=== PATIENT | male | born 1980 | race Caucasian/White ===

== ENCOUNTER 2018-08-19 22:49 | Emergency (ER) | payer SELFPAY ==
[~2018-08-19] VITALS: Ht 175.3 cm; Wt 64.8 kg
[~2018-08-19 22:49] MED LIST: MESA400C PO; MESA500C PO; TRIM100V2 IM
[2018-08-19] MEDS ORDERED: IV NORMAL SALINE 1,000ML 1,000 ML IV ONE (23:15)
[2018-08-19] MEDS ORDERED: FAMOTIDINE 20 MG/2 ML VIAL IVP ONE (23:30)
[2018-08-19] MEDS ORDERED: ONDANSETRON PF 4 MG/2 ML VIAL. IV ONE (23:30)
[2018-08-19] MEDS ORDERED: DEXAMETHASONE SOD PHOS 10 MG/ML VIAL IV ONE (23:30)
[2018-08-19] MEDS ORDERED: IOHEXOL 300 MG/ML 75 ML VIAL. IV ONE (23:45)
[2018-08-19] MEDS ORDERED: CONTRAST GIVEN MC PRN (23:45)
[2018-08-19] MEDS ORDERED: IOHEXOL 240 MG/ML 50ML VIAL. PO ONE (23:45)
--- NOTE | 2018-08-19 23:51 | PHYS DOC ---
Past History Past Medical History: Other Additional Past Medical Histor: Crohn's, Hepatitis C Past Surgical History: Cholecystectomy, Other Additional Past Surgical Histo: Partial colectomy Smoking: Quit Greater Than 1 Year Alcohol Use: None Drug Use: None Adult General Chief Complaint Chief Complaint: ABDOMINAL PAIN HPI HPI 37-year-old [facility] history of abdominal pain which patient reports is consistent with known Crohn's flare. Patient reports he recently got out of prison. Reports is currently not taking preventative medications. Reports associated nausea and vomiting. Reports did have a bloody bowel movement 2 days ago. Denies diarrhea. Denies fever or chills. Review of Systems Review of Systems Constitutional: Denies fever or chills [] Eyes: Denies change in visual acuity, redness, or eye pain [] HENT: Denies nasal congestion or sore throat [] Respiratory: Denies cough or shortness of breath [] Cardiovascular: Denies chest pain or palpitations GI: Reports abdominal pain, nausea, vomiting, and bloody stools; denies diarrhea [] : Denies dysuria or hematuria [] Musculoskeletal: Denies back pain or joint pain [] Integument: Denies rash or skin lesions [] Neurologic: Denies headache, focal weakness or sensory changes [] Complete systems were reviewed and found to be within normal limits, except as documented in this note. Current Medications Current Medications Current Medications Medications (Trade) Dose Ordered Sig/[facility] Start Time Stop Time Status Last Admin Dose Admin Dexamethasone Sodium Phosphate (Decadron) 10 mg 1X ONCE 08/19/18 23:30 08/19/18 23:31 DC 08/19/18 23:33 10 MG Famotidine (Pepcid Vial) 20 mg 1X ONCE 08/19/18 23:30 08/19/18 23:31 DC 08/19/18 23:32 20 MG Fentanyl Citrate (Fentanyl 2ml Vial) 50 mcg 1X ONCE 08/19/18 23:30 08/19/18 23:31 DC 08/19/18 23:31 50 MCG Info (Do NOT chart on this entry -- for MONITORING) 1 each PRN DAILY PRN 08/19/18 23:45 08/21/18 23:44 Iohexol (Omnipaque 240 Mg/ml) 50 ml 1X ONCE 08/19/18 23:45 08/19/18 23:46 Iohexol (Omnipaque 300 Mg/ml) 75 ml 1X ONCE 08/19/18 23:45 08/19/18 23:46 Ondansetron HCl (Zofran) 4 mg 1X ONCE 08/19/18 23:30 08/19/18 23:31 DC 08/19/18 23:32 4 MG Sodium Chloride 1,000 ml @ 1,000 mls/hr 1X ONCE 08/19/18 23:15 08/20/18 00:14 08/19/18 23:31 1,000 MLS/HR Allergies Allergies Allergies Coded Allergies Type Severity Reaction Last Updated Verified aspirin Allergy Intermediate rash 08/19/18 No ibuprofen Allergy Intermediate rash 08/19/18 No ketorolac Allergy Intermediate rash 08/19/18 No morphine Allergy Intermediate rash 08/19/18 No Physical Exam Physical Exam Constitutional: Well developed, well nourished, no acute distress, non-toxic appearance. [] HENT: Normocephalic, atraumatic, oropharynx moist Eyes: Conjunctiva normal, no discharge. [] Neck: Normal range of motion, no tenderness, supple Cardiovascular: Heart rate regular rhythm, no murmur [] Lungs & Thorax: Bilateral breath sounds clear to auscultation [] Abdomen: Soft, diffuse tenderness but worse to RLQ Skin: Warm, dry, no erythema, no rash. [] Back: No tenderness, no CVA tenderness. [] Extremities: No tenderness, ROM intact, no edema. [] Neurologic: Alert and oriented X 3, normal motor function, normal sensory function, no focal deficits noted. [] Psychologic: Affect normal, judgement normal, mood normal. [] Current Patient Data Vital Signs Vital Signs Date Time Temp Pulse Resp B/P (MAP) Pulse Ox O2 Delivery O2 Flow Rate FiO2 08/19/18 22:55 98.5 60 16 99 Room Air EKG EKG [] Radiology/Procedures Radiology/Procedures PROCEDURE: CT ABD PEL W/ORAL CONTRST ONLY Abdominal and Pelvis CT, Without Contrast: History: Abdominal pain. History of Crohn's disease. Comparison: None. Procedure: Axial images are obtained of the abdomen and pelvis, with oral contrast only. CT Abdomen without Contrast: Findings: Evaluation of solid organs is limited without contrast. Liver: Normal. Spleen: Normal. Pancreas: Normal. Adrenal Glands: Normal. Kidneys: Normal. There is no free air or free fluid. There is no lymphadenopathy. Impression: Please see CT Pelvis without Contrast. End Impression. CT Pelvis without Contrast: Findings: The urinary bladder appears normal. There is no free fluid. There is no lymphadenopathy. There appears to been prior appendectomy. There is moderate wall thickening of the distal ileum and terminal ileum. Impression: Moderate wall thickening of the distal ileum and terminal ileum is consistent with Crohn's disease. PQRS Compliance Statement: One or more of the following individualized dose reduction techniques were utilized for this examination: 1. Automated exposure control 2. Adjustment of the mA and/or kV according to patient size 3. Use of iterative reconstruction technique Electronically signed by: Tylor Blankenship III, MD (08/20/2018 1:27 AM) [facility] Course & Med Decision Making Course & Med Decision Making Pertinent Labs and Imaging studies reviewed. (See chart for details) Patient with past medical history of Crohn's disease presents with diffuse abdominal pain which appears worse to right lower quadrant. Reports associated nausea and vomiting. Patient reports symptoms similar to prior Crohn's flares. Symptomatic treatment provided. IV fluid hydration given. Labs obtained and posted to chart. CT abdomen/pelvis with findings consistent for Crohn's flare. Symptomatic treatment provided. Patient stable for discharge with outpatient follow-up with PCP/GI. GI referral provided. Rx for pain meds, anti-inflammatory, and anti-emetic provided. [employer] inquiry performed without any recent controlled substance prescription noted. Discussed findings and plan with patient, who acknowledges understanding and agreement. Dragon Disclaimer Dragon Disclaimer This electronic medical record was generated, in whole or in part, using a voice recognition dictation system. Departure Departure: Impression: Primary Impression: Crohn's colitis Disposition: HOME, SELF-CARE Condition: STABLE Referrals: PCPFLOYD (PCP) TAM HOPE MD Patient Instructions: Crohn's Disease Scripts Mesalamine (PENTASA) 500 Mg Capsule.er 1000 MG PO QID for Crohn's colitis, #30 CAP.SR Prov: JULIENNE SEYMOUR DO 08/20/18 Ondansetron (ZOFRAN ODT) 4 Mg Tab.rapdis 1 TAB SL Q8HRS PRN for NAUSEA, #15 TAB Prov: JULIENNE SEYMOUR DO 08/20/18 Oxycodone Hcl (OXYCODONE HCL) 5 Mg Tablet 1 TAB PO QID PRN for PAIN, #10 TAB Prov: JULIENNE SEYMOUR DO 08/20/18 Problem Qualifiers Primary Impression: Crohn's colitis Digestive disease complication type: unspecified complication Qualified Codes : K50.119 - Crohn's disease of large intestine with unspecified complications JULIENNE SEYMOUR DO Aug 19, 2018 23:50
[2018-08-20 00:18] LABS: BASO # 0.1 x10^3/uL (0.0-0.2); BASO % 1 % (0-3); EOS # 0.1 x10^3/uL (0.0-0.7); EOS % 1 % (0-3); HEMATOCRIT 45.8 % (39.0-53.0); HEMOGLOBIN 15.4 g/dL (13.0-17.5); LYMPH # 1.5 x10^3/uL (1.0-4.8); LYMPH % 19 % (24-48); MEAN CORPUSCULAR HEMOGLOBIN 29 pg (25-35); MEAN CORPUSCULAR HGB CONC 34 g/dL (31-37); MEAN CORPUSCULAR VOLUME 86 fL (79-100); MONO # 0.6 x10^3/uL (0.0-1.1); MONO % 8 % (0-9); NEUT # 5.4 x10^3uL (1.8-7.7); NEUT % 70 % (31-73); PLATELET COUNT 269 x10^3/uL (140-400); RED BLOOD COUNT 5.34 x10^6/uL (4.30-5.70); RED CELL DISTRIBUTION WIDTH 13.7 % (11.5-14.5); WHITE BLOOD COUNT 7.8 x10^3/uL (4.0-11.0)
[2018-08-20 00:27] LABS: ALBUMIN 3.9 g/dL (3.4-5.0); ALBUMIN/GLOBULIN RATIO 0.9 (1.0-1.7); CALCIUM 8.7 mg/dL (8.5-10.1); CREATININE 1.3 mg/dL (0.7-1.3); GFR 62.1; MAGNESIUM 2.1 mg/dL (1.8-2.4); POTASSIUM 3.8 mmol/L (3.5-5.1); TOTAL BILIRUBIN 0.5 mg/dL (0.2-1.0); TOTAL PROTEIN 8.1 g/dL (6.4-8.2)
[2018-08-20 01:00] VITALS: BP 126/61
--- NOTE | 2018-08-20 01:30 | RAD ---
Abdominal and Pelvis CT, Without Contrast: History: Abdominal pain. History of Crohn's disease. Comparison: None. Procedure: Axial images are obtained of the abdomen and pelvis, with oral contrast only. CT Abdomen without Contrast: Findings: Evaluation of solid organs is limited without contrast. Liver: Normal. Spleen: Normal. Pancreas: Normal. Adrenal Glands: Normal. Kidneys: Normal. There is no free air or free fluid. There is no lymphadenopathy. Impression: Please see CT Pelvis without Contrast. End Impression. CT Pelvis without Contrast: Findings: The urinary bladder appears normal. There is no free fluid. There is no lymphadenopathy. There appears to been prior appendectomy. There is moderate wall thickening of the distal ileum and terminal ileum. Impression: Moderate wall thickening of the distal ileum and terminal ileum is consistent with Crohn's disease. PQRS Compliance Statement: One or more of the following individualized dose reduction techniques were utilized for this examination: 1. Automated exposure control 2. Adjustment of the mA and/or kV according to patient size 3. Use of iterative reconstruction technique Electronically signed by: Tylor Blankenship III, MD (08/20/2018 1:27 AM) [facility]
[2018-08-20] MEDS ORDERED: OXYC5TAB95 PO (01:54)
[2018-08-20] MEDS ORDERED: ONDA4TAB10 SL (01:54)
[2018-08-20] MEDS ORDERED: MESA500C PO ×2 (01:54→01:56)
== END 2018-08-20 02:10 | disposition home or self-care (01) ==
LOC: ER 22:49
DX: K50.119 Crohn's disease of large intestine with unspecified complications (principal); Z90.49 Acquired absence of other specified parts of digestive tract; Z87.891 Personal history of nicotine dependence; Z88.6 Allergy status to analgesic agent; Z88.5 Allergy status to narcotic agent; Z88.8 Allergy status to other drugs, medicaments and biological substances
CPT/HCPCS: 36415; 74176; 80053; 83690; 83735; 85025; 96361; 96374; 96375; 96376; 99285; J1100; J2405; J3010; Q9966; S0028; J7030

== ENCOUNTER 2018-08-23 16:21 | Emergency (ER) | payer SELFPAY ==
[~2018-08-23] VITALS: Ht 175.3 cm; Wt 64.8 kg
[~2018-08-23 16:21] MED LIST changes: +ONDA4TAB10 SL; +OXYC5TAB95 PO
[2018-08-23 16:36] VITALS: BP 130/64
[2018-08-23] MEDS ORDERED: IV NORMAL SALINE 1,000ML 1,000 ML IV SCH (17:13)
--- NOTE | 2018-08-23 17:21 | PHYS DOC ---
Past History Past Medical History: Other Additional Past Medical Histor: Crohn's, Hepatitis C Past Surgical History: No Surgical History Additional Past Surgical Histo: Partial colectomy Smoking: Quit Greater Than 1 Year Alcohol Use: None Drug Use: None Adult General Chief Complaint Chief Complaint: BLOODY STOOL HPI HPI Patient is a 37 year old male who presents with complaining of abdominal pain and bloody stools. Patient states he had a long time history of Crohn's disease and for the last 1 week has had right-sided abdominal pain with history of 4 episodes of vomiting and 45 episodes of nonbloody diarrhea every day. Patient states he was seen in this emergency room 5 days ago and was not able to buy his medication because of financial problem and lack of insurance and today had 1 episodes of bright red blood in his stool prior to arrival to ER. Patient rated his pain 8/10 and states it is a sharp right-sided abdominal pain with radiation to his back. Patient denies urinary symptom, fever, chest pain and shortness of breath. Patient was incarcerated for 4 years and currently is a resident [facility]. Review of Systems Review of Systems Constitutional: Denies fever or chills [] Eyes: Denies change in visual acuity, redness, or eye pain [] HENT: Denies nasal congestion or sore throat [] Respiratory: Denies cough or shortness of breath [] Cardiovascular: No additional information not addressed in HPI [] GI: Reports abdominal pain, nausea, vomiting, bloody stools and diarrhea [] : Denies dysuria or hematuria [] Musculoskeletal: Denies back pain or joint pain [] Integument: Denies rash or skin lesions [] Neurologic: Denies headache, focal weakness or sensory changes [] Endocrine: Denies polyuria or polydipsia [] All other systems were reviewed and found to be within normal limits, except as documented in this note. Current Medications Current Medications Current Medications Medications (Trade) Dose Ordered Sig/Saw Start Time Stop Time Status Last Admin Dose Admin Famotidine (Pepcid Vial) 20 mg 1X ONCE 08/23/18 17:15 08/23/18 17:16 UNV Ondansetron HCl (Zofran) 4 mg 1X ONCE 08/23/18 17:15 08/23/18 17:16 UNV Sodium Chloride 1,000 ml @ 1,000 mls/hr Q1H 08/23/18 17:13 11/5/18 18:12 UNV Allergies Allergies Allergies Coded Allergies Type Severity Reaction Last Updated Verified aspirin Allergy Intermediate rash 08/19/18 No ibuprofen Allergy Intermediate rash 08/19/18 No ketorolac Allergy Intermediate rash 08/19/18 No morphine Allergy Intermediate rash 08/19/18 No Physical Exam Physical Exam Constitutional: Well developed, well nourished, no acute distress, non-toxic appearance. [] HENT: Normocephalic, atraumatic, oropharynx moist, no oral exudates, nose normal. [] Eyes: PERRLA, EOMI, conjunctiva normal, no discharge. [] Neck: Normal range of motion, no tenderness, supple, no stridor. [] Cardiovascular:Heart rate regular rhythm, no murmur [] Lungs & Thorax: Bilateral breath sounds clear to auscultation [] Abdomen: Bowel sounds normal, soft, no tenderness, voluntary guarding of the right side of abdomen ,no masses, no pulsatile masses. Rectal exam with present of local city driver showed normal external exam without gross blood stool. Skin: Warm, dry, no erythema, no rash. [] Back: No tenderness, no CVA tenderness. [] Extremities: No tenderness, no cyanosis, no clubbing, ROM intact, no edema. [] Neurologic: Alert and oriented X 3, normal motor function, normal sensory function, no focal deficits noted. [] Psychologic: Affect anxious, judgement normal, mood normal. [] Current Patient Data Vital Signs Vital Signs Date Time Temp Pulse Resp B/P (MAP) Pulse Ox O2 Delivery O2 Flow Rate FiO2 08/23/18 16:36 98.3 71 20 98 Room Air EKG EKG [] Radiology/Procedures Radiology/Procedures [] Impressions: Diagnoses Crohn's disease exacerbation Noncompliance with medication Course & Med Decision Making Course & Med Decision Making Pertinent Labs are pending. @1800: In addition of patient in ER showed 37-year-old male patient resident of the house presented for the second time to ER for abdominal pain and complaining of rectal bleeding. Patient had decreased breath and without gross stool or blood in his rectum. Labs is pending. Patient care transferred to Dr. [place] at 1800. Nurses and labs were not able to get blood from the patient I suggested a central line or IJ he declined stated just here for pain medicine and antibiotic requested sign AGAINST MEDICAL ADVICE and left home I advised the patient come back to the hospital if he changes his mind I also advised him to follow-up with primary care provider and gastroenterology as soon as possible Karol Disclaimer Karol Disclaimer This electronic medical record was generated, in whole or in part, using a voice recognition dictation system. Departure Departure: Disposition: AGAINST MEDICAL ADVICE Condition: GOOD Referrals: PCP,NO (PCP) Patient was advised to follow-up with gastroenterology Scripts Oxycodone Hcl (OXYCODONE HCL) 5 Mg Capsule 1 CAP PO QID for pain, #12 CAP Prov: BETTY PINEDO MD 08/23/18 Prednisone (PREDNISONE) 20 Mg Tablet 1 TAB PO BID for chrons for 10 Days, #20 TAB Prov: BETTY PINEDO MD 08/23/18 Metronidazole (FLAGYL) 500 Mg Tablet 1 TAB PO TID for chrobns, #30 TAB Prov: BETTY PINEDO MD 08/23/18 Ciprofloxacin Hcl (CIPRO) 500 Mg Tablet 1 TAB PO BID for chrons, #20 TAB Prov: BETTY PINEDO MD 08/23/18 BOY HINES MD Aug 23, 2018 17:21 BETTY PINEDO MD Aug 23, 2018 19:04
[2018-08-23] MEDS ORDERED: ONDANSETRON PF 4 MG/2 ML VIAL. IV ONE (17:45)
[2018-08-23] MEDS ORDERED: FAMOTIDINE 20 MG/2 ML VIAL IVP ONE (17:45)
--- NOTE | 2018-08-23 18:36 | RAD ---
EXAM: Chest, single view. HISTORY: Cough and fever. COMPARISON: None. FINDINGS: A frontal view of the chest is obtained. There is no infiltrate, pleural effusion or pneumothorax. The heart is normal in size. IMPRESSION: No acute pulmonary finding. Electronically signed by: Felisha Bean MD (08/23/2018 6:32 PM) [facility]
[2018-08-23] MEDS ORDERED: CIPR500T94 PO (19:01)
[2018-08-23] MEDS ORDERED: METR500T PO (19:01)
[2018-08-23] MEDS ORDERED: PRED20TA PO (19:01)
[2018-08-23] MEDS ORDERED: OXYC5CAP PO (19:02)
[2018-08-23] MEDS ORDERED: PROC10TA57 PO (19:17)
[2018-08-23] MEDS ORDERED: CIPROFLOXACIN HCL 500 MG TABLET PO ONE (19:30)
[2018-08-23] MEDS ORDERED: methylPREDNISolone SOD SUCC PF 125 MG/2 ML VIAL. IM ONE (19:30)
[2018-08-23] MEDS ORDERED: metroNIDAZOLE 500 MG TABLET PO ONE (19:30)
[2018-08-23] MEDS ORDERED: ONDANSETRON ODT 4 MG TAB.RAPDIS ONE (19:31)
[2018-08-23] MEDS ORDERED: oxyCODONE IR 5 MG TABLET PO STA (19:47)
== END 2018-08-23 22:40 | disposition left against medical advice (07) ==
LOC: ER 16:21
DX: K50.90 Crohn's disease, unspecified, without complications (principal); Z91.14 Patient's other noncompliance with medication regimen; Z87.891 Personal history of nicotine dependence; Z88.6 Allergy status to analgesic agent; Z88.5 Allergy status to narcotic agent; Z88.8 Allergy status to other drugs, medicaments and biological substances
CPT/HCPCS: 71045; 96372; 99284; J2930

== ENCOUNTER 2018-09-06 14:09 | Emergency (ER) | payer OTHER ==
[~2018-09-06] VITALS: Ht 175.3 cm; Wt 65.8 kg
[~2018-09-06 14:09] MED LIST changes: +CIPR500T94 PO; +METR500T PO; +OXYC5CAP PO; +PRED20TA PO; +PROC10TA57 PO
[2018-09-06] MEDS ORDERED: hydrOXYzine HCL 25 MG TABLET PO STA (15:13)
[2018-09-06] MEDS ORDERED: ONDANSETRON PF 4 MG/2 ML VIAL. IV ONE ×2 (15:15→16:30)
[2018-09-06] MEDS ORDERED: cloNIDine HCL 0.1 MG TABLET PO ONE (15:15)
[2018-09-06] MEDS ORDERED: IV NORMAL SALINE 1,000ML 1,000 ML IV ONE (15:15)
--- NOTE | 2018-09-06 15:23 | PHYS DOC ---
Past History Past Medical History: Other Additional Past Medical Histor: Crohn's, Hepatitis C Past Surgical History: No Surgical History Additional Past Surgical Histo: Partial colectomy Smoking: Quit Greater Than 1 Year Alcohol Use: None Drug Use: None Adult General Chief Complaint Chief Complaint: [facility] HPI 37-year-old male presents with fatigue, left upper arm pain, nausea and vomiting. Patient states that [facility] for a right upper extremity blood clot. Review the record shows he was admitted for a Crohn's diagnosis. He was given narcotic pain medications. He has not had any of those for 3 days. He states that he was unable to fill his prescriptions due to not having insurance. He tells me that today he had some nausea and vomiting and generalized weakness. He is concern for dehydration. He denies diarrhea. He denies fever or chills. Review of Systems Review of Systems Constitutional: Denies fever or chills [] Eyes: Denies change in visual acuity, redness, or eye pain [] HENT: Denies nasal congestion or sore throat [] Respiratory: Denies cough or shortness of breath [] Cardiovascular: No additional information not addressed in HPI [] GI: nausea, vomiting, denies bloody stools or diarrhea [] : Denies dysuria or hematuria [] Musculoskeletal: Left upper arm pain[] Integument: Denies rash or skin lesions [] Neurologic: Denies headache, focal weakness or sensory changes [] Endocrine: Denies polyuria or polydipsia [] All other systems were reviewed and found to be within normal limits, except as documented in this note. Current Medications Current Medications Current Medications Medications (Trade) Dose Ordered Sig/Saw Start Time Stop Time Status Last Admin Dose Admin Clonidine HCl (Catapres) 0.1 mg 1X ONCE 09/06/18 15:15 09/06/18 15:16 UNV Hydroxyzine HCl (Atarax) 25 mg 1X STAT 09/06/18 15:13 09/06/18 15:14 UNV Ondansetron HCl (Zofran) 4 mg 1X ONCE 09/06/18 15:15 09/06/18 15:16 UNV Sodium Chloride 1,000 ml @ 1,000 mls/hr 1X ONCE 09/06/18 15:15 09/06/18 16:14 UNV Allergies Allergies Allergies Coded Allergies Type Severity Reaction Last Updated Verified aspirin Allergy Intermediate rash 08/19/18 No ibuprofen Allergy Intermediate rash 08/19/18 No ketorolac Allergy Intermediate rash 08/19/18 No morphine Allergy Intermediate rash 08/19/18 No Physical Exam Physical Exam Constitutional: Well developed, well nourished, no acute distress, non-toxic appearance. [] HENT: Normocephalic, atraumatic, bilateral external ears normal, oropharynx moist, no oral exudates, nose normal. [] Eyes: PERRLA, EOMI, conjunctiva normal, no discharge. [] Neck: Normal range of motion, no tenderness, supple, no stridor. [] Cardiovascular:Heart rate regular rhythm, no murmur [] Lungs & Thorax: Bilateral breath sounds clear to auscultation [] Abdomen: Bowel sounds normal, soft, no tenderness, no masses, no pulsatile masses. [] Skin: Bruising and evidence of a superficial hematoma of the left upper arm.[] Back: No tenderness, no CVA tenderness. [] Extremities: No cyanosis, no clubbing, ROM intact, no edema. [] Neurologic: Alert and oriented X 3, normal motor function, normal sensory function, no focal deficits noted. [] Psychologic: Affect normal, judgement normal, mood normal. [] Current Patient Data Vital Signs Vital Signs Date Time Temp Pulse Resp B/P (MAP) Pulse Ox O2 Delivery O2 Flow Rate FiO2 09/06/18 14:15 97.5 118 22 96 Room Air EKG EKG [] Radiology/Procedures Radiology/Procedures [] Course & Med Decision Making Course & Med Decision Making Pertinent Labs and Imaging studies reviewed. (See chart for details) Review of the prescription drug database shows that he filled a prescription for 10 5 mg oxycodone on September 04. This is a prescription written from August 20. It was private pay. The patient does appear to have a superficial hematoma of the left upper extremity. I do not see signs of current infection. The patient's her labs are remarkable for some elevation of his liver enzymes. Compared to his previous labs this appears new. The labs are about double the normal value. This could just be transient. I explained to the patient would be best if he could follow-up and repeat these labs to make sure they trending down. He doesn't currently have a PCP. He is working on getting Medicaid. I have given the patient 1 [place] 5/325 and 8 mg of Zofran. [] Dragon Disclaimer Dragon Disclaimer This electronic medical record was generated, in whole or in part, using a voice recognition dictation system. Departure Departure: Referrals: PCP,NO (PCP) GONZÁLEZ WHITMAN DO Sep 06, 2018 15:23
[2018-09-06 15:50] VITALS: BP 140/76
[2018-09-06] MEDS ORDERED: HYDROcodone/APAP 5/325MG 1 TAB TABLET PO ONE (16:00)
[2018-09-06 16:02] LABS: BASO # 0.1 x10^3/uL (0.0-0.2); BASO % 1 % (0-3); EOS # 0.1 x10^3/uL (0.0-0.7); EOS % 1 % (0-3); HEMATOCRIT 50.3 % (39.0-53.0); HEMOGLOBIN 16.4 g/dL (13.0-17.5); LYMPH # 1.1 x10^3/uL (1.0-4.8); LYMPH % 10 % (24-48); MEAN CORPUSCULAR HEMOGLOBIN 28 pg (25-35); MEAN CORPUSCULAR HGB CONC 33 g/dL (31-37); MEAN CORPUSCULAR VOLUME 87 fL (79-100); MONO # 0.9 x10^3/uL (0.0-1.1); MONO % 8 % (0-9); NEUT # 9.2 x10^3uL (1.8-7.7); NEUT % 80 % (31-73); PLATELET COUNT 236 x10^3/uL (140-400); RED BLOOD COUNT 5.79 x10^6/uL (4.30-5.70); RED CELL DISTRIBUTION WIDTH 15.1 % (11.5-14.5); WHITE BLOOD COUNT 11.5 x10^3/uL (4.0-11.0)
[2018-09-06 16:16] LABS: ALBUMIN 3.5 g/dL (3.4-5.0); ALBUMIN/GLOBULIN RATIO 0.7 (1.0-1.7); CALCIUM 9.7 mg/dL (8.5-10.1); GFR 84.1; POTASSIUM 4.5 mmol/L (3.5-5.1); TOTAL BILIRUBIN 0.7 mg/dL (0.2-1.0); TOTAL PROTEIN 8.4 g/dL (6.4-8.2)
== END 2018-09-06 16:40 | disposition home or self-care (01) ==
LOC: ER 14:09
DX: S40.022A Contusion of left upper arm, initial encounter (principal); R79.89 Other specified abnormal findings of blood chemistry; R11.2 Nausea with vomiting, unspecified; Z87.891 Personal history of nicotine dependence; Z88.6 Allergy status to analgesic agent; Z88.5 Allergy status to narcotic agent; Z88.8 Allergy status to other drugs, medicaments and biological substances; X58.XXXA Exposure to other specified factors, initial encounter; Y93.89 Activity, other specified; Y92.89 Other specified places as the place of occurrence of the external cause; Y99.8 Other external cause status
CPT/HCPCS: 36415; 80053; 85025; 96361; 96374; 96376; 99284; J2405; J7030

== ENCOUNTER 2018-09-11 21:11 | Emergency (ER) | payer OTHER ==
[~2018-09-11] VITALS: Ht 175.3 cm; Wt 67.0 kg
--- NOTE | 2018-09-11 21:35 | ED.ADGEN ---
Past History Past Medical History: GERD, GI Bleed, Other Additional Past Medical Histor: Crohn's, Hepatitis C Past Surgical History: Other Additional Past Surgical Histo: Partial colectomy Smoking: Quit Greater Than 1 Year Alcohol Use: None Drug Use: None Adult General Chief Complaint Chief Complaint ".. I got blood in my stool...".. " I just shit about hand full of bright red clots.. I have Crohn's.. and was here the other day.. they sent me to [facility].. but discharged me.. but the [facility] has not filled my Pentasa..." HPI HPI Patient is a 37 year old male who presents with abdomen pain and bright red out let bleeding with last stool.. Pt. resident of [facility]. Pt just discharged from [facility] for exacerbation of his Crohn's. Pt. has antibiotics Flagyl and Cipro, but has not filled the Pentasa. Pt. states unable to fill Pentasa until Thursday. Pt. will be following at [facility] when discharged from [facility]. Pt. records checked at [facility]- Pt. apparently tolerated Pentasa well at [facility] in spite of his allergy to aspirin. Pt. denies any intake of bad food since discharge. Has been eating regular foods. Pt. currently on Coumadin for DVT in Lt. arm from pic line. Pt. states he normally has a Crohn exacerbation approximately 2 x year. Has not had colon scopic eval in over 10 yrs. Pt. was to follow up at - via [facility] for GI consult at . Review of Systems Review of Systems Constitutional: Denies fever or chills [] Eyes: Denies change in visual acuity, redness, or eye pain [] HENT: Denies nasal congestion or sore throat [] Respiratory: Denies cough or shortness of breath [] Cardiovascular: No additional information not addressed in HPI [] GI: Complaints of abdominal pain,Denies nausea, vomiting, diarrhea []. Complaints of bright red blood when stooling. : Denies dysuria or hematuria [] Musculoskeletal: Denies back pain or joint pain [] Integument: Denies rash or skin lesions [] Neurologic: Denies headache, focal weakness or sensory changes [] Endocrine: Denies polyuria or polydipsia [] All other systems were reviewed and found to be within normal limits, except as documented in this note. Family History Family History Non-contributory Current Medications Current Medications Current Medications Medications (Trade) Dose Ordered Sig/Saw Start Time Stop Time Status Last Admin Dose Admin Famotidine (Pepcid) 20 mg 1X ONCE 09/11/18 22:30 09/11/18 22:31 DC 09/11/18 23:13 20 MG Fentanyl Citrate (Fentanyl 2ml Vial) 75 mcg 1X ONCE 09/12/18 00:30 09/12/18 00:30 DC 09/12/18 00:09 75 MCG Lactated Ringer's 1,000 ml @ 1,000 mls/hr 1X ONCE 09/11/18 22:30 09/11/18 23:29 DC 09/11/18 23:13 1,000 MLS/HR Mesalamine (Pentasa) 1,000 mg [id number] 09/12/18 00:30 09/12/18 00:30 DC 09/12/18 00:09 1,000 MG Methylprednisolone Acetate (DEPO-Medrol IM) 40 mg 1X ONCE 09/11/18 23:30 09/11/18 23:31 DC 09/11/18 23:23 40 MG Ondansetron HCl (Zofran Odt) 8 mg 1X ONCE 09/11/18 22:30 09/11/18 22:31 DC 09/11/18 23:13 8 MG Allergies Allergies Allergies Coded Allergies Type Severity Reaction Last Updated Verified aspirin Allergy Intermediate rash 09/11/18 No ibuprofen Allergy Intermediate rash 09/11/18 No ketorolac Allergy Intermediate rash 09/11/18 No morphine Allergy Intermediate rash 09/11/18 No Physical Exam Physical Exam Constitutional: Moderately acute distress, non-toxic appearance. [] HENT: Normocephalic, atraumatic, bilateral external ears normal, oropharynx moist, no oral exudates, nose normal. [] Eyes: PERRLA, EOMI, conjunctiva normal, no discharge. [] Neck: Normal range of motion, no tenderness, supple, no stridor. [] Cardiovascular:Heart rate regular rhythm, no murmur [] Lungs & Thorax: Bilateral breath sounds clear to auscultation [] Abdomen: Bowel sounds normal, soft, mild generalized tenderness, no masses, no pulsatile masses. []Old surgery scars. No gross blood per rectum on digital exam. Stool occult on my exam was negative. No true rebound. Skin: Warm, dry, no erythema, no rash. [] Back: No tenderness, no CVA tenderness. [] Extremities: No tenderness, no cyanosis, no clubbing, ROM intact, no edema. [] No heel tap or psoas. Neurologic: Alert and oriented X 3, normal motor function, normal sensory function, no focal deficits noted. [] Psychologic: Affect normal, judgement normal, mood normal. [] Current Patient Data Vital Signs Vital Signs Date Time Temp Pulse Resp B/P (MAP) Pulse Ox O2 Delivery O2 Flow Rate FiO2 09/11/18 23:14 20 95 Lab Results Laboratory Tests Test 09/11/18 21:45 09/11/18 22:11 09/11/18 22:35 09/11/18 22:50 Urine Collection Type Void Urine Color Yellow Urine Clarity Clear Urine pH 5.5 Urine Specific [place] >=1.030 Urine Protein Neg (NEG-TRACE) Urine Glucose (UA) Neg mg/dL (NEG) Urine Ketones (Stick) Neg mg/dL (NEG) Urine Blood Neg (NEG) Urine Nitrite Neg (NEG) Urine Bilirubin Neg (NEG) Urine Urobilinogen Dipstick 0.2 mg/dL (0.2 mg/dL) Urine Leukocyte Esterase Trace (NEG) Urine RBC Rare /HPF (0-2) Urine WBC Occ /HPF (0-4) Urine Squamous Epithelial Cells Occ /LPF Urine Bacteria 0 /HPF (0-FEW) Stool Occult Blood Negative (NEG) Prothrombin Time 13.3 SEC (9.4-11.4) H Prothrombin Time INR 1.4 (0.9-1.1) H PTT 24 SEC (23-33) Sodium Level 139 mmol/L (136-145) Potassium Level 4.0 mmol/L (3.5-5.1) Chloride Level 102 mmol/L (98-107) Carbon Dioxide Level 25 mmol/L (21-32) Anion Gap 12 (6-14) Blood Urea Nitrogen 21 mg/dL (8-26) Creatinine 1.0 mg/dL (0.7-1.3) Estimated GFR (Cockcroft-Gault) 84.1 Glucose Level 127 mg/dL (70-99) H Calcium Level 8.9 mg/dL (8.5-10.1) Total Bilirubin 0.3 mg/dL (0.2-1.0) Direct Bilirubin 0.2 mg/dL (0.0-0.2) Aspartate Amino Transferase (AST) 31 U/L (15-37) Alanine Aminotransferase (ALT) 101 U/L (16-63) H Alkaline Phosphatase 109 U/L (46-116) Total Protein 7.6 g/dL (6.4-8.2) Albumin 3.6 g/dL (3.4-5.0) Lipase 318 U/L (73-393) White Blood Count 7.2 x10^3/uL (4.0-11.0) Red Blood Count 4.81 x10^6/uL (4.30-5.70) Hemoglobin 13.6 g/dL (13.0-17.5) Hematocrit 41.5 % (39.0-53.0) Mean Corpuscular Volume 86 fL (79-100) Mean Corpuscular Hemoglobin 28 pg (25-35) Mean Corpuscular Hemoglobin Concent 33 g/dL (31-37) Red Cell Distribution Width 14.4 % (11.5-14.5) Platelet Count 214 x10^3/uL (140-400) Neutrophils (%) (Auto) 86 % (31-73) H Lymphocytes (%) (Auto) 9 % (24-48) L Monocytes (%) (Auto) 4 % (0-9) Eosinophils (%) (Auto) 0 % (0-3) Basophils (%) (Auto) 0 % (0-3) Neutrophils # (Auto) 6.2 x10^3uL (1.8-7.7) Lymphocytes # (Auto) 0.7 x10^3/uL (1.0-4.8) L Monocytes # (Auto) 0.3 x10^3/uL (0.0-1.1) Eosinophils # (Auto) 0.0 x10^3/uL (0.0-0.7) Basophils # (Auto) 0.0 x10^3/uL (0.0-0.2) EKG EKG [] Radiology/Procedures Radiology/Procedures My interpretation of acute abdomen shows no free air under the diaphragm. Has findings of prior upper abd. clips and sutures. Increased stool in colon. No acute findings of Chest portion of film.[] Course & Med Decision Making Course & Med Decision Making Pertinent Labs and Imaging studies reviewed. (See chart for details) Patient continue GI meds as previous directed at [facility] discharge. Prescription for Pentasa needs to be filled and resumed. Pt. remain on a clear fluid diet only for the next 48 hours. No solids or milk products. Must allow bowel rest. Patient is overdue for colonoscopy. Patient return if any concerns. Patient follow-up primary care. Patient follow-up with GI. [] Final Impression Final Impression 1. Abdomen Pain 2. Hx. of Crohn's 3. Hx. of lower GI Bleeding[] Dragon Disclaimer Dragon Disclaimer This electronic medical record was generated, in whole or in part, using a voice recognition dictation system. BRENT MOTTA MD Sep 11, 2018 21:35
[2018-09-11] MEDS ORDERED: IV RINGERS SOLUTION,LACTATED 1,000 ML IV ONE (22:30)
[2018-09-11] MEDS ORDERED: FAMOTIDINE 20 MG TABLET PO ONE (22:30)
[2018-09-11] MEDS ORDERED: ONDANSETRON ODT 4 MG TAB.RAPDIS PO ONE (22:30)
[2018-09-11 22:41] LABS: BILIRUBIN,URINE NEG (NEG); CLARITY,URINE CLEAR; COLOR,URINE YELLOW; GLUCOSE,URINE NEG (NEG)
[2018-09-11 22:42] LABS: BACTERIA,URINE 0 /HPF (0-FEW); NITRITE,URINE NEG (NEG); RBC,URINE RARE /HPF (0-2); SQUAMOUS EPITHELIAL CELL,UR OCC /LPF; UROBILINOGEN,URINE 0.2 mg/dL (0.2 mg/dL); WBC,URINE OCC /HPF (0-4)
[2018-09-11 23:03] LABS: ALBUMIN 3.6 g/dL (3.4-5.0); CALCIUM 8.9 mg/dL (8.5-10.1); DIRECT BILIRUBIN 0.2 mg/dL (0.0-0.2); GFR 84.1; TOTAL BILIRUBIN 0.3 mg/dL (0.2-1.0); TOTAL PROTEIN 7.6 g/dL (6.4-8.2)
[2018-09-11 23:12] LABS: BASO % 0 % (0-3); EOS % 0 % (0-3); HEMATOCRIT 41.5 % (39.0-53.0); HEMOGLOBIN 13.6 g/dL (13.0-17.5); LYMPH # 0.7 x10^3/uL (1.0-4.8); LYMPH % 9 % (24-48); MEAN CORPUSCULAR HEMOGLOBIN 28 pg (25-35); MEAN CORPUSCULAR HGB CONC 33 g/dL (31-37); MEAN CORPUSCULAR VOLUME 86 fL (79-100); MONO # 0.3 x10^3/uL (0.0-1.1); MONO % 4 % (0-9); NEUT # 6.2 x10^3uL (1.8-7.7); NEUT % 86 % (31-73); PLATELET COUNT 214 x10^3/uL (140-400); RED BLOOD COUNT 4.81 x10^6/uL (4.30-5.70); RED CELL DISTRIBUTION WIDTH 14.4 % (11.5-14.5); WHITE BLOOD COUNT 7.2 x10^3/uL (4.0-11.0)
[2018-09-11] MEDS ORDERED: methylPREDNISolone ACETATE 40 MG/ML VIAL. IM ONE (23:30)
[2018-09-12 00:05] VITALS: BP 127/82
[2018-09-12] MEDS ORDERED: MESALAMINE ER 250 MG CAPSULE.ER PO SCH (00:30)
[2018-09-12 01:52] LABS: FECAL OB PT NEGATIVE (NEG)
--- NOTE | 2018-09-12 09:28 | RAD ---
Single view chest and upright and supine AP views abdomen 09/11/2018 CLINICAL INDICATION: Abdominal pain with bloody stool. COMPARISON: CT abdomen pelvis 08/20/2018 FINDINGS: Cardiac and mediastinal silhouettes are unremarkable. No pleural effusion, pneumothorax or focal consolidation. Right upper quadrant cholecystectomy clips. Postsurgical changes in the right lower quadrant. There is a nonobstructive bowel gas pattern. No pneumoperitoneum. IMPRESSION: 1. No acute cardiopulmonary abnormality. 2. No radiographic evidence of bowel obstruction. Electronically signed by: Joshua Bruno MD (09/12/2018 9:24 AM) [facility]
== END 2018-09-12 00:15 | disposition home or self-care (01) ==
LOC: ER 21:11
DX: R10.84 Generalized abdominal pain (principal); K92.1 Melena; K21.9 Gastro-esophageal reflux disease without esophagitis; K50.90 Crohn's disease, unspecified, without complications; Z90.49 Acquired absence of other specified parts of digestive tract; Z87.891 Personal history of nicotine dependence; Z88.6 Allergy status to analgesic agent; Z88.5 Allergy status to narcotic agent; Z88.8 Allergy status to other drugs, medicaments and biological substances
CPT/HCPCS: 36415; 74022; 80048; 80076; 81001; 82274; 83690; 85025; 85610; 85730; 86705; 86709; 86803; 86900; 86901; 87086; 87340; 96372; 99284; J1030; J3010; J7120; Q0162

== ENCOUNTER 2018-09-19 13:06 | Emergency (ER) | payer OTHER ==
[~2018-09-19] VITALS: Ht 175.3 cm; Wt 67.0 kg
[~2018-09-19 13:06] MED LIST changes: +OXYC5TAB4 PO; -OXYC5TAB95 PO
--- NOTE | 2018-09-19 13:42 | RAD ---
EXAM: CHEST 1 VIEW History: Chest pain COMPARISON: 08/23/2018 TECHNIQUE: Single portable radiograph of the chest FINDINGS: The cardiac silhouette is unremarkable. The lungs are clear bilaterally. The costophrenic sulci are clear and well demarcated. IMPRESSION: No radiographic evidence of an acute cardiopulmonary process. Electronically signed by: Russ Sahni MD (09/19/2018 1:38 PM) [facility]
[2018-09-19 14:22] LABS: BASO % 0 % (0-3); EOS # 0.2 x10^3/uL (0.0-0.7); EOS % 2 % (0-3); HEMATOCRIT 44.1 % (39.0-53.0); HEMOGLOBIN 14.8 g/dL (13.0-17.5); LYMPH # 1.1 x10^3/uL (1.0-4.8); LYMPH % 16 % (24-48); MEAN CORPUSCULAR HEMOGLOBIN 29 pg (25-35); MEAN CORPUSCULAR HGB CONC 34 g/dL (31-37); MEAN CORPUSCULAR VOLUME 87 fL (79-100); MONO # 0.4 x10^3/uL (0.0-1.1); MONO % 6 % (0-9); NEUT # 5.4 x10^3uL (1.8-7.7); NEUT % 76 % (31-73); PLATELET COUNT 346 x10^3/uL (140-400); RED BLOOD COUNT 5.09 x10^6/uL (4.30-5.70); RED CELL DISTRIBUTION WIDTH 14.8 % (11.5-14.5); WHITE BLOOD COUNT 7.1 x10^3/uL (4.0-11.0)
--- NOTE | 2018-09-19 14:33 | EKG ---
[address] [address] Test Date: 2018-09-19 Test Time: 13:19:16 Pat Name: JOCELINE RAYA Department: Room: Gender: M [employer]: : 1980 Requested By: GONZÁLEZ WHITMAN Order Number: [id number] Reading MD: Jaswinder Arceo Measurements Intervals [place] Rate: 98 P: 71 TN: 134 QRS: 80 QRSD: 86 T: 47 QT: 306 QTc: 392 Interpretive Statements SINUS RHYTHM NORMAL ECG Electronically Signed On 09-20-2018 9:05:54 [employer] by Jaswinder Arceo
[2018-09-19 14:38] LABS: ALBUMIN 3.7 g/dL (3.4-5.0); ALBUMIN/GLOBULIN RATIO 0.9 (1.0-1.7); CALCIUM 8.9 mg/dL (8.5-10.1); GFR 84.1; POTASSIUM 3.9 mmol/L (3.5-5.1); TOTAL BILIRUBIN 0.4 mg/dL (0.2-1.0); TOTAL PROTEIN 7.8 g/dL (6.4-8.2)
--- NOTE | 2018-09-19 14:48 | PHYS DOC ---
Past History Past Medical History: GERD, GI Bleed, Other Additional Past Medical Histor: Crohn's, Hepatitis C Past Surgical History: Other Additional Past Surgical Histo: Partial colectomy Smoking: Quit Greater Than 1 Year Alcohol Use: None Drug Use: None Adult General Chief Complaint Chief Complaint: CHEST PAIN [facility] HPI 37-year-old male presents with left-sided upper chest pain. He presents today because he was diagnosed with an upper extremity DVT due to a PICC line and is on warfarin. His discharge instructions from the hospital so that he had chest pain he should come to the emergency room. Patient denies shortness of breath or diaphoresis. While in the ED the patient had a bowel movement and discovered it was mostly blood. He has a history of Crohn's and is on medications. He has had surgery for his Crohn's in the past. He now continues to have right lower quadrant cramping pain. The patient states he has been taking his Coumadin as directed for his DVT. He denies fever or chills. He denies shortness of breath or dizziness. Review of Systems Review of Systems Constitutional: Denies fever or chills [] Eyes: Denies change in visual acuity, redness, or eye pain [] HENT: Denies nasal congestion or sore throat [] Respiratory: Denies cough or shortness of breath [] Cardiovascular: No additional information not addressed in HPI [] GI: Abdominal pain, bloody stool.[] : Denies dysuria or hematuria [] Musculoskeletal: Denies back pain or joint pain [] Integument: Denies rash or skin lesions [] Neurologic: Denies headache, focal weakness or sensory changes [] Endocrine: Denies polyuria or polydipsia [] All other systems were reviewed and found to be within normal limits, except as documented in this note. Allergies Allergies Allergies Coded Allergies Type Severity Reaction Last Updated Verified aspirin Allergy Intermediate rash 09/11/18 No ibuprofen Allergy Intermediate rash 09/11/18 No ketorolac Allergy Intermediate rash 09/11/18 No morphine Allergy Intermediate rash 09/11/18 No Physical Exam Physical Exam Constitutional: Well developed, well nourished, no acute distress, non-toxic appearance. [] HENT: Normocephalic, atraumatic, bilateral external ears normal, oropharynx moist, no oral exudates, nose normal. [] Eyes: PERRLA, EOMI, conjunctiva normal, no discharge. [] Neck: Normal range of motion, no tenderness, supple, no stridor. [] Cardiovascular:Heart rate regular rhythm, no murmur [] Lungs & Thorax: Bilateral breath sounds clear to auscultation [] Abdomen: Mild right lower quadrant abdominal tenderness without rebound or guarding. Blood in stool[] Skin: Warm, dry, no erythema, no rash. [] Back: No tenderness, no CVA tenderness. [] Extremities: No tenderness, no cyanosis, no clubbing, ROM intact, no edema. [] Neurologic: Alert and oriented X 3, normal motor function, normal sensory function, no focal deficits noted. [] Psychologic: Affect normal, judgement normal, mood normal. [] Current Patient Data Vital Signs Vital Signs Date Time Temp Pulse Resp B/P (MAP) Pulse Ox O2 Delivery O2 Flow Rate FiO2 09/19/18 13:29 98.1 97 18 97 Room Air Lab Results Laboratory Tests Test 09/19/18 14:00 White Blood Count 7.1 x10^3/uL (4.0-11.0) Red Blood Count 5.09 x10^6/uL (4.30-5.70) Hemoglobin 14.8 g/dL (13.0-17.5) Hematocrit 44.1 % (39.0-53.0) Mean Corpuscular Volume 87 fL (79-100) Mean Corpuscular Hemoglobin 29 pg (25-35) Mean Corpuscular Hemoglobin Concent 34 g/dL (31-37) Red Cell Distribution Width 14.8 % (11.5-14.5) H Platelet Count 346 x10^3/uL (140-400) Neutrophils (%) (Auto) 76 % (31-73) H Lymphocytes (%) (Auto) 16 % (24-48) L Monocytes (%) (Auto) 6 % (0-9) Eosinophils (%) (Auto) 2 % (0-3) Basophils (%) (Auto) 0 % (0-3) Neutrophils # (Auto) 5.4 x10^3uL (1.8-7.7) Lymphocytes # (Auto) 1.1 x10^3/uL (1.0-4.8) Monocytes # (Auto) 0.4 x10^3/uL (0.0-1.1) Eosinophils # (Auto) 0.2 x10^3/uL (0.0-0.7) Basophils # (Auto) 0.0 x10^3/uL (0.0-0.2) Sodium Level 139 mmol/L (136-145) Potassium Level 3.9 mmol/L (3.5-5.1) Chloride Level 102 mmol/L (98-107) Carbon Dioxide Level 28 mmol/L (21-32) Anion Gap 9 (6-14) Blood Urea Nitrogen 19 mg/dL (8-26) Creatinine 1.0 mg/dL (0.7-1.3) Estimated GFR (Cockcroft-Gault) 84.1 BUN/Creatinine Ratio 19 (6-20) Glucose Level 109 mg/dL (70-99) H Calcium Level 8.9 mg/dL (8.5-10.1) Total Bilirubin 0.4 mg/dL (0.2-1.0) Aspartate Amino Transferase (AST) 34 U/L (15-37) Alanine Aminotransferase (ALT) 93 U/L (16-63) H Alkaline Phosphatase 95 U/L (46-116) Troponin I Quantitative < 0.017 ng/mL (0-0.055) Total Protein 7.8 g/dL (6.4-8.2) Albumin 3.7 g/dL (3.4-5.0) Albumin/Globulin Ratio 0.9 (1.0-1.7) L EKG EKG [] Radiology/Procedures Radiology/Procedures [] Impressions: EXAM: CHEST 1 VIEW History: Chest pain COMPARISON: 08/23/2018 TECHNIQUE: Single portable radiograph of the chest FINDINGS: The cardiac silhouette is unremarkable. The lungs are clear bilaterally. The costophrenic sulci are clear and well demarcated. IMPRESSION: No radiographic evidence of an acute cardiopulmonary process. Electronically signed by: Russ Sahni MD (09/19/2018 1:38 PM) [facility] DICTATED AND SIGNED BY: RUSS SAHNI MD DATE: 09/19/18 1337 CC: GONZÁLEZ WHITMAN DO; PCP,NO ~ CT abdomen and pelvis with contrast 09/19/2018. Reason for exam: Right lower quadrant pain for one day. History of Crohn's disease. CT images were obtained through the abdomen and pelvis using an infusion of 75 mL Omnipaque 300. Exposure: One or more of the following individualized dose reduction techniques were utilized for this examination: 1. Automated exposure control 2. Adjustment of the mA and/or kV according to patient size 3. Use of iterative reconstruction technique. Comparison is made with a study of 08/31/2014. FINDINGS: The lung bases are clear. The liver and spleen are homogeneous in density and normal in configuration. There apparently has been a cholecystectomy performed since the prior study. Both kidneys enhance with contrast. There is a 1 mm calcification in the mid right kidney. The adrenal glands are not enlarged. The pancreas appears normal. No retroperitoneal or mesenteric adenopathy is seen. There is no apparent abdominal soft tissue mass. Postoperative changes are again seen involving the right colon. There continues to be an abnormal segment of bowel at the distal ileum extending to the colonic anastomosis. This again shows wall thickening and mucosal hyperenhancement over several centimeters, although the degree of inflammation may be slightly less than on the prior exam, and there is no evidence of obstruction on today's study. No extraluminal fluid or gas collection is seen to suggest abscess or fistula. Images through the pelvis show no abnormality of the distal ureters or bladder. The bladder was not well-distended. No pelvic or inguinal adenopathy is seen. There is no apparent pelvic mass or other inflammatory process. IMPRESSION: There is evidence of active Crohn's disease of the distal ileum. Distribution is similar to the previous study, although the degree of inflammation may be slightly less and there is no evidence of obstruction on today's study. Electronically signed by: Kristofer Sy Jr., MD (09/19/2018 5:43 PM) [facility] DICTATED AND SIGNED BY: KRISTOFER SY Jr, MD DATE: 09/19/18 1737 CC: GONZÁLEZ WHITMAN DO; PCP,NO Course & Med Decision Making Course & Med Decision Making Pertinent Labs and Imaging studies reviewed. (See chart for details) The patient's labs are unremarkable. His troponin is negative. His chest x-ray is unremarkable. His EKG is unremarkable. The patient's INR is only 1.0. Given this, I will not give him vitamin K or FFP to reverse the Coumadin in light of his rectal bleeding. The patient has been advised to go to [facility] if he had repeat Crohn's flares. The patient is in agreement with this transfer if available. I will discuss it with . Dr. Gilbert at has accepted the patient for transfer. Karol Disclaimer Karol Disclaimer This electronic medical record was generated, in whole or in part, using a voice recognition dictation system. Departure Departure: Referrals: PCP,FLOYD (PCP) GONZÁLEZ WHITMAN DO Sep 19, 2018 14:48
[2018-09-19] MEDS ORDERED: HYDROmorphone PF 1 MG/ML DISP.SYRIN IV ONE ×2 (15:50→18:45)
[2018-09-19] MEDS ORDERED: IOHEXOL 300 MG/ML 75 ML VIAL. IV ONE (16:45)
--- NOTE | 2018-09-19 17:46 | RAD ---
CT abdomen and pelvis with contrast 09/19/2018. Reason for exam: Right lower quadrant pain for one day. History of Crohn's disease. CT images were obtained through the abdomen and pelvis using an infusion of 75 mL Omnipaque 300. Exposure: One or more of the following individualized dose reduction techniques were utilized for this examination: 1. Automated exposure control 2. Adjustment of the mA and/or kV according to patient size 3. Use of iterative reconstruction technique. Comparison is made with a study of 08/31/2014. FINDINGS: The lung bases are clear. The liver and spleen are homogeneous in density and normal in configuration. There apparently has been a cholecystectomy performed since the prior study. Both kidneys enhance with contrast. There is a 1 mm calcification in the mid right kidney. The adrenal glands are not enlarged. The pancreas appears normal. No retroperitoneal or mesenteric adenopathy is seen. There is no apparent abdominal soft tissue mass. Postoperative changes are again seen involving the right colon. There continues to be an abnormal segment of bowel at the distal ileum extending to the colonic anastomosis. This again shows wall thickening and mucosal hyperenhancement over several centimeters, although the degree of inflammation may be slightly less than on the prior exam, and there is no evidence of obstruction on today's study. No extraluminal fluid or gas collection is seen to suggest abscess or fistula. Images through the pelvis show no abnormality of the distal ureters or bladder. The bladder was not well-distended. No pelvic or inguinal adenopathy is seen. There is no apparent pelvic mass or other inflammatory process. IMPRESSION: There is evidence of active Crohn's disease of the distal ileum. Distribution is similar to the previous study, although the degree of inflammation may be slightly less and there is no evidence of obstruction on today's study. Electronically signed by: Jonas Sy Jr., MD (09/19/2018 5:43 PM) [facility]
[2018-09-19 17:54] VITALS: BP 123/83
== END 2018-09-19 20:30 | disposition short-term general hospital (02) ==
LOC: ER 13:06
DX: R07.89 Other chest pain (principal); R10.31 Right lower quadrant pain; K92.1 Melena; K21.9 Gastro-esophageal reflux disease without esophagitis; K50.90 Crohn's disease, unspecified, without complications; Z79.01 Long term (current) use of anticoagulants; Z87.891 Personal history of nicotine dependence; Z88.6 Allergy status to analgesic agent; Z88.5 Allergy status to narcotic agent; Z88.8 Allergy status to other drugs, medicaments and biological substances
CPT/HCPCS: 36415; 71045; 74177; 80053; 84484; 85025; 85610; 85730; 93005; 96374; 96376; 99285; J1170; Q9967; 99284-25